=== PATIENT | female | born 1965 | race Caucasian/White ===

== ENCOUNTER 2020-11-04 18:06 | Emergency (ER) | payer BC ==
[2020-11-04] MEDS ORDERED: Diphtheria,Pertussis(Acell),Tetanus Vaccine 0.5 ML Syringe IM ONE (18:52)
[2020-11-04] MEDS ORDERED: Bupivacaine 0.5% 10 ML SDV INJECT ONE (18:52)
--- NOTE | 2020-11-04 19:46 | EDM.PDOC ---
ED HPI GENERAL MEDICAL PROBLEM - General Chief Complaint: Laceration Stated Complaint: CUT TO FINGER ON R HAND Time Seen by Provider: 11/04/20 18:26 Source of Information: Reports: Patient History Limitations: Reports: No Limitations - History of Present Illness INITIAL COMMENTS - FREE TEXT/NARRATIVE: HISTORY AND PHYSICAL: History of present illness: Patient is a 55-year-old female who presents emergency room today with concern of finger laceration on her right hand pointer finger that occurred just prior to travel to the emergency room. Patient states that she was cleaning a knife when she was doing dishes and the knife slipped and cut her pointer finger. Patient states that she is not up-to-date on tetanus and would like to update this today. Patient states that she has been fully able to move the finger without deficit. Patient denies any other symptoms or concerns. Patient denies fever, chills, chest pain, shortness of breath, or cough. Denies headache, neck stiff ness, change in vision, syncope, or near syncope. Denies nausea, vomiting, abdominal pain, diarrhea, constipation, or dysuria. Has not noted any blood in urine or stool. Patient has been eating and drinking appropriately. Review of systems: As per history of present illness and below otherwise all systems reviewed and negative. Past medical history: As per history of present illness and as reviewed below otherwise noncontributory. Surgical history: As per history of present illness and as reviewed below otherwise noncontributory. Social history: See social history for further information Family history: As per history of present illness and as reviewed below otherwise noncontributory. Physical exam: General: Patient is alert, oriented, and in no acute distress. Patient sitting comfortably on exam table. HEENT: Atraumatic, normocephalic, pupils equal and reactive bilaterally, negative for conjunctival pallor or scleral icterus, mucous membranes moist, TMs normal bilaterally, throat clear, neck supple, nontender, trachea midline. No drooling or trismus noted. No meningeal signs. No hot potato voice noted. Lungs: Clear to auscultation, breath sounds equal bilaterally, chest nontender. Heart: S1S2, regular rate and rhythm without overt murmur Abdomen: Soft, nondistended, nontender. Negative for masses or hepatosplenomegaly. Negative for costovertebral tenderness. Pelvis: Stable nontender. Genitourinary: Deferred. Rectal: Deferred. Skin: Intact, warm, dry. No lesions or rashes noted. Extremities: There is a 1 cm flap-like subcutaneous laceration on the palmar aspect of the distal second digit without bleeding. Patient has full range of motion of the digit without deficit. Patient has full range of motion of remaining digits of the right upper extremity without deficit. Radial pulses grossly intact with capillary refill less than 2 seconds. Otherwise, atraumatic, negative for cords or calf pain. Neurovascular unremarkable. Neuro: Awake, alert, oriented. Cranial nerves II through XII unremarkable. Cerebellum unremarkable. Motor and sensory unremarkable throughout. Exam nonfocal. Notes: Signs and symptoms that would prompt return to the ED thoroughly discussed with patient. Discussed the importance for follow up with a primary care provider. Voices understanding and is agreeable to plan of care. Denies any further questions or concerns at this time. Diagnostics: None Therapeutics: Digital block, Sutures, Sterile dressing placed by nursing staff, Tdap Prescription: None Impression: Finger laceration, left, 2nd digit Plan: 1. Keep the area clean and dry. Continue to monitor for signs of infection as discussed. Sutures to be removed in 7-10 days. 2. Tylenol and/or ibuprofen as directed and as needed for pain management and discomfort. 3. Please follow-up with your primary care provider as discussed. Return to the ED as needed and as discussed. Definitive disposition and diagnosis as appropriate pending reevaluation and review of above. right first finger Pain Score (Numeric/FACES): 1 - Related Data Allergies Allergy/AdvReac Type Severity Reaction Status Date / Time No Known Allergies Allergy Verified 11/04/20 18:27 Home Meds: Home Meds Amitriptyline [Elavil] 11/04/20 [History] Buprenorphine [Butrans] 11/04/20 [History] Gabapentin [Neurontin] 11/04/20 [History] Zolpidem Tartrate [Ambien] 11/04/20 [History] Past Medical History Genitourinary History: Reports: Other (See Below) Other Genitourinary History: "painful bladder syndrome" Musculoskeletal History: Reports: Back Pain, Chronic - Infectious Disease History Infectious Disease History: Reports: Chicken Pox Social & Family History - Family History Family Medical History: No Pertinent Family History - Caffeine Use Caffeine Use: Reports: None - Recreational Drug Use Recreational Drug Use: No ED ROS GENERAL - Review of Systems Review Of Systems: Comprehensive ROS is negative, except as noted in HPI. ED EXAM, SKIN/RASH Exam: See Below (see dictation) ED SKIN PROCEDURES - Laceration/Wound Repair Right Distal Digit - 2nd (Index) Appearance: Subcutaneous, Irregular, Clean Distal NVT: Neuro & Vascular Intact, No Tendon Injury Local Anesthesia - Lidocaine (Xylocaine): 1% Plain Local Anesthesia - Bupivicaine (Marcaine): 0.5% Plain Local Anesthetic Volume: 5cc Skin Prep: Chlorhexidine (Hibiciens), Providone-Iodine (Betadine), Saline Saline Irrigation (cc's): 500 Exploration/Debridement/Repair: Wound Explored, In a Bloodless Field, Explored to Base, No Foreign Material Found Closed with: Sutures Lac/Wound length In cm: 1 Suture Size: 4-0 # of Sutures: 4 Suture Type: Silk, Interrupted Drain Placement: No Sterile Dressing Applied: Nurse Tetanus Status Addressed: Yes Complications: No Course - Vital Signs Last Recorded V/S: Last Vital Signs Temp 98 F 11/04/20 18:19 Pulse 69 11/04/20 18:19 Resp 16 11/04/20 18:19 BP 103/67 11/04/20 18:19 Pulse Ox 99 11/04/20 18:19 - Orders/Labs/Meds Meds: Medications Discontinued Medications Generic Name Dose Route Start Last Admin Trade Name Manav PRN Reason Stop Dose Admin Bupivacaine HCl 10 ml 11/04/20 18:52 11/04/20 19:05 Sensorcaine-Mpf 0.5% INJECT 11/04/20 18:53 10 ml ONETIME ONE Administration Diphtheria/Tetanus/Acell Pertussis 0.5 ml 11/04/20 18:52 11/04/20 19:06 Boostrix IM 11/04/20 18:53 0.5 ml .ONCE ONE Administration Lidocaine HCl 5 ml 11/04/20 18:52 11/04/20 19:05 Xylocaine-Mpf 1% INJECT 11/04/20 18:53 5 ml ONETIME ONE Administration Departure - Departure Time of Disposition: 19:46 Disposition: Home, Self-Care 01 Clinical Impression: Finger laceration Qualifiers: Encounter type: initial encounter Finger: index finger Damage to nail status: without damage Foreign body presence: without foreign body Laterality: right Qualified Code(s): S61.210A - Laceration without foreign body of right index finger without damage to nail, initial encounter - Discharge Information Referrals: Marcial Zeng MD [Primary Care Provider] - Forms: ED Department Discharge Additional Instructions: The following information is given to patients seen in the emergency department who are being discharged to home. This information is to outline your options for follow-up care. We provide all patients seen in our emergency department with a follow-up referral. The need for follow-up, as well as the timing and circumstances, are variable depending upon the specifics of your emergency department visit. If you don't have a primary care physician on staff, we will provide you with a referral. We always advise you to contact your personal physician following an emergency department visit to inform them of the circumstance of the visit and for follow-up with them and/or the need for any referrals to a consulting specialist. The emergency department will also refer you to a specialist when appropriate. This referral assures that you have the opportunity for follow-up care with a specialist. All of these measure are taken in an effort to provide you with optimal care, which includes your follow-up. Under all circumstances we always encourage you to contact your private physician who remains a resource for coordinating your care. When calling for follow-up care, please make the office aware that this follow-up is from your recent emergency room visit. If for any reason you are refused follow-up, please contact the [facility] Emergency Department at and asked to speak to the emergency department charge nurse. [facility] [address] [place] [id number] [id number] 1. Keep the area clean and dry. Continue to monitor for signs of infection as discussed. Sutures to be removed in 7-10 days. 2. Tylenol and/or ibuprofen as directed and as needed for pain management and discomfort. 3. Please follow-up with your primary care provider as discussed. Return to the ED as needed and as discussed. Sepsis Event Note (ED) - Evaluation Sepsis Screening Result: No Definite Risk - Focused Exam Vital Signs: Vital Signs Temp Pulse Resp BP Pulse Ox 11/04/20 18:19 98 F 69 16 103/67 99
== END 2020-11-04 19:56 | disposition home or self-care (01) ==
LOC: MW.ED 18:06
DX: S61.210A Laceration without foreign body of right index finger without damage to nail, initial encounter (principal); Z23 Encounter for immunization; W26.0XXA Contact with knife, initial encounter; Y93.G9 Activity, other involving cooking and grilling; Y92.009 Unspecified place in unspecified non-institutional (private) residence as the place of occurrence of the external cause
CPT/HCPCS: 12001; 90471; 90715; 99282; J3490

== ENCOUNTER 2020-12-24 02:05 | Emergency (ER) | payer BC ==
[2020-12-24] MEDS ORDERED: Ketorolac 15 MG/ML SDV IM ONE (03:42)
[2020-12-24] MEDS ORDERED: Ketorolac 15 MG/ML SDV ONE (03:45)
[2020-12-24] MEDS ORDERED: Bacitracin Oint 1 GM U/D Packet TOP ONE (03:54)
--- NOTE | 2020-12-24 03:57 | EDM.PDOC ---
ED HPI GENERAL MEDICAL PROBLEM - General Chief Complaint: Head Injury Stated Complaint: FACE INJURY Time Seen by Provider: 12/24/20 02:35 - History of Present Illness INITIAL COMMENTS - FREE TEXT/NARRATIVE: CHIEF COMPLAINT(S): Head injury HISTORY OF PRESENT ILLNESS: This is a 55-year-old woman with a past medical history of insomnia who presents to the emergency department after a head injury. The patient states that she had a cookout at some friend's house and had a couple of bottles of wine. She states that when she got home she laid down on the couch and took her Ambien and fell asleep. She states that upon awakening she was going to the restroom and fell and hit her head on the corner of the counter. She denies any loss of consciousness but states that she did have a cut to her left eyebrow with some bleeding. She denies any nausea or vomiting, trouble walking, trouble speaking or trouble swallowing. She denied any preceding chest pain or shortness of breath. She denies any abdominal pain. She denies any other symptoms. She states that she does have some pain located on her left eyebrow which she describes as sharp rated 6 out of 10 without any radiation. She denies any diplopia, blurry vision. She states that she has not yet taken anything for pain therefore she does not know anything relieves it. She denies any exacerbating factors. She states that her tetanus is up-to-date as she had a finger injury 2 weeks ago and it was updated. REVIEW OF SYSTEMS: Constitutional: Denies fever, chills. Eyes: Denies eye pain Ears, Nose, Mouth, & Throat: Denies earache Cardiovascular: Denies chest pain Respiratory: Denies shortness of breath Gastrointestinal: Denies Nausea, vomiting, diarrhea, hematochezia. Genitourinary: Denies hematuria Skin: Positive for cut to left eyebrow MSK: Denies joint pain Neurological: Positive for head injury without loss of consciousness. Denies blurred vision, diplopia, numbness, tingling, weakness Psychiatric: Denies depression PAST MEDICAL HISTORY: As per history of present illness and as reviewed below otherwise noncontributory. SURGICAL HISTORY: As per history of present illness and as reviewed below otherwise noncontributory. SOCIAL HISTORY: As per history of present illness and as reviewed below otherwise noncontributory. FAMILY HISTORY: As per history of present illness and as reviewed below otherwise noncontributory. EXAMINATION OF ORGAN SYSTEMS/BODY AREAS: Constitutional: Blood pressure was 111/62, heart rate 60, respiratory rate 18 with an oxygen saturation of 99% on room air. Temperature 36.8 General: Overall well-appearing woman who is in no acute distress. Psychiatric: Appropriate mood and affect. Eyes: No scleral icterus or conjunctival erythema pupils are equal round and reactive to light. Extraocular was intact. No signs of entrapment. No periorbital swelling or ecchymosis. There is a 1.5 cm laceration to the patient's left eyebrow approximately 2 cm from the medial canthus. There is no drainage from this laceration. No palpable skull deformity in this area. ENMT: Moist mucous membranes. No pharyngeal erythema no blood in the oropharynx. No missing or chipped teeth. Cardiovascular: Regular, rate, and rhythm. No gallops, murmurs, or rubs. Bilateral upper extremity pulses symmetric and intact. No peripheral edema. No JVD. Respiratory: Lungs clear to auscultation bilaterally. No wheezes, rales, or rhonchi. Gastrointestinal: Soft, non-tender, non-distended. Normoactive bowel sounds Genitourinary: No suprapubic tenderness Musculoskeletal: Normal range of motion. Skin: 1.5 cm laceration to the left eyebrow Neurological: Alert, GCS 15 strength and sensation grossly intact in upper and extremities bilaterally MEDICAL DECISION MAKING AND COURSE IN THE ED WITH INTERPRETATION/REVIEW OF DIAGNOSTIC STUDIES: This is a 55-year-old woman with a past medical history of insomnia who comes to the emergency department after an accidental fall with a resultant left eyebrow laceration after drinking and taking Ambien. Patient's vitals are normal. Given no history of loss of consciousness or any other complaints I do not believe any labs or imaging are indicated. We will provide the patient with Toradol for pain relief. I did encourage the patient to not take Ambien if she had been drinking. Given the patient's tetanus is up-to-date we will not administer a repeat dose. Will perform suture repair. Laceration Repair Note Repair of the 1.5 cm left eyebrow wound was done by myself. Wound was irrigated well with saline. Local anesthesia with lidocaine was performed. No foreign bodies were noted. The wound was repaired with 3 6-0 directed nylon sutures. Wound edges approximated well. Bacitracin ointment and a sterile dressing were applied. After laceration I did discuss with patient and patient's at bedside that they were stable for discharge. They are to return for removal of the stitches in 5 to 7 days. She is to return for any new or worsening symptoms and was given strict return precautions. The patient was amenable to discharge and had no further questions. DISPOSITION: The patient was discharged home in stable condition. They will f ollow-up within 5 to 7 days for suture removal CONDITION: Fair PROCEDURES: Laceration repair FINAL IMPRESSION(S)/DIAGNOSES: 1. Acute closed head injury status post mechanical fall 2. Acute left eyebrow laceration status post suture repair 3. Acute alcohol intoxication with polypharmacy César Uribe M.D. forehead Pain Score (Numeric/FACES): 6 - Related Data Allergies Allergy/AdvReac Type Severity Reaction Status Date / Time No Known Allergies Allergy Verified 12/24/20 02:41 Home Meds: Home Meds Amitriptyline [Elavil] 11/04/20 [History] Buprenorphine [Butrans] 1 patch TOP TID 11/04/20 [History] Gabapentin [Neurontin] 11/04/20 [History] Zolpidem Tartrate [Ambien] 5 mg PO BEDTIME 11/04/20 [History] Past Medical History Genitourinary History: Reports: Other (See Below) Other Genitourinary History: "painful bladder syndrome" Musculoskeletal History: Reports: Back Pain, Chronic - Infectious Disease History Infectious Disease History: Reports: Chicken Pox Social & Family History - Family History Family Medical History: No Pertinent Family History - Caffeine Use Caffeine Use: Reports: None ED ROS GENERAL - Review of Systems Review Of Systems: See Below ED EXAM, HEAD INJURY - Physical Exam Exam: See Below Course - Vital Signs Last Recorded V/S: Last Vital Signs Temp 36.8 C 12/24/20 02:19 Pulse 72 12/24/20 04:08 Resp 18 12/24/20 04:08 BP 112/68 12/24/20 04:08 Pulse Ox 98 12/24/20 04:08 - Orders/Labs/Meds Meds: Medications Discontinued Medications Generic Name Dose Route Start Last Admin Trade Name Freq PRN Reason Stop Dose Admin Bacitracin 1 dose 12/24/20 03:54 12/24/20 04:04 Bacitracin Oint 1 Gm U/D Packet TOP 12/24/20 03:55 1 dose ONETIME ONE Administration Ketorolac Tromethamine 15 mg 12/24/20 03:42 12/24/20 03:48 Ketorolac 15 Mg/Ml Sdv IM 12/24/20 03:43 15 mg ONETIME ONE Administration Ketorolac Tromethamine Confirm 12/24/20 03:45 12/24/20 03:49 Ketorolac 15 Mg/Ml Sdv Administered 12/24/20 03:46 Not Given Dose 15 mg .ROUTE .STK-MED ONE Lidocaine HCl 5 ml 12/24/20 03:48 12/24/20 03:49 Lidocaine 1% 5 Ml Sdv INJECT 12/24/20 03:49 5 ml ONETIME ONE Administration Lidocaine HCl Confirm 12/24/20 03:45 12/24/20 03:49 Lidocaine 1% 5 Ml Sdv Administered 12/24/20 03:46 Not Given Dose 5 ml .ROUTE .STK-MED ONE Departure - Departure Time of Disposition: 03:55 Disposition: Home, Self-Care 01 Condition: Fair Clinical Impression: Eyebrow laceration, Head injury - Discharge Information *PRESCRIPTION DRUG MONITORING PROGRAM REVIEWED*: No *COPY OF PRESCRIPTION DRUG MONITORING REPORT IN PATIENT SAUL: No Instructions: Head Injury, Adult, [id number], Laceration Care, Adult, Eas y-to-Read Referrals: Marcial Zeng MD [Primary Care Provider] - Forms: ED Department Discharge Additional Instructions: You evaluate today on an emergent basis. At this time you did have a laceration to your left eyebrow. We did place 3 stitches in this. You need to have these removed in 5 to 7 days. If you have any pus drainage or redness please return to the emergency department. Please take Tylenol and Motrin for pain relief. Please use: Tylenol 500-1000mg every 6 hours (DO NOT TAKE MORE THAN 4000mg in 1 day) Ibuprofen 400mg every 6 hours (Take with food as it can cause ulcers, GI upset) Example schedule: 8:00 AM (Tylenol 500-1000mg) 11:00 AM (Ibuprofen 400mg) 2:00 PM (Tylenol 500-1000mg) 5:00 PM (Ibuprofen 400mg) Ice the area 20 minutes 4 times per day [facility] [address] [place] [address] [facility] [address] [place] [address] The patient is informed of any results of their evaluation and diagnostic workup and all questions are answered. They are given discharge instructions and return precautions. The patient is stable for discharge. The patient states they understand and agree with the plan and that they will return if their symptoms get worse or if they have any new concerns. The following information is given to patients seen in the emergency department who are being discharged to home. This information is to outline your options for follow-up care. We provide all patients seen in our emergency department with a follow-up referral. The need for follow-up, as well as the timing and circumstances, are variable depending upon the specifics of your emergency department visit. If you don't have a primary care physician on staff, we will provide you with a referral. We always advise you to contact your personal physician following an emergency department visit to inform them of the circumstance of the visit and for follow-up with them and/or the need for any referrals to a consulting specialist. The emergency department will also refer you to a specialist when appropriate. This referral assures that you have the opportunity for follow-up care with a sp ecialist. All of these measure are taken in an effort to provide you with optimal care, which includes your follow-up. Under all circumstances we always encourage you to contact your private physicia n who remains a resource for coordinating your care. When calling for follow-up care, please make the office aware that this follow-up is from your recent emergency room visit. If for any reason you are refused follow-up, please contact the [facility] Emergency Department at and asked to speak to the emergency department charge nurse.
== END 2020-12-24 04:08 | disposition home or self-care (01) ==
LOC: MW.ED 02:05
DX: S01.112A Laceration without foreign body of left eyelid and periocular area, initial encounter (principal); F10.129 Alcohol abuse with intoxication, unspecified; S09.90XA Unspecified injury of head, initial encounter; Z79.899 Other long term (current) drug therapy; W22.8XXA Striking against or struck by other objects, initial encounter
CPT/HCPCS: 12011; 96372; 99283; J1885; 99282